=== PATIENT | female | born 1975 | race Caucasian/White ===

== ENCOUNTER 2025-02-22 07:45 | Emergency (ER) | payer MEDICAID ==
[~2025-02-22] VITALS: Ht 175.3 cm; Wt 64.0 kg
[2025-02-22 07:49] VITALS: O2SAT 100
[2025-02-22] MEDS: LIDOCAINE HCL/PF 1% 10 MG/ML 5ML VIAL INFIL ONE (09:11)
[2025-02-22] MEDS: BACITRACIN ZINC OINT UDPKT TOP ONE (09:11)
[2025-02-22] MEDS: ACETAMINOPHEN 325MG TABLET PO ONE (09:16)
[2025-02-22] MEDS ORDERED: IBUP-2029 MT (11:46)
[2025-02-22 12:09] VITALS: BP 130/86; PULSE 85; RESP 16; TEMP 36.9; O2SAT 100
== END 2025-02-22 12:22 | disposition home or self-care (01) ==
LOC: ER 07:45
DX: S01.81XA Laceration without foreign body of other part of head, initial encounter (principal); W01.0XXA Fall on same level from slipping, tripping and stumbling without subsequent striking against object, initial encounter; Y93.89 Activity, other specified; Y92.89 Other specified places as the place of occurrence of the external cause; Y99.8 Other external cause status
CPT/HCPCS: 81025; 70486; 12011; 99284; J2003; Z7610